=== PATIENT | female | born 1945 | race Two or more races ===

== ENCOUNTER 2017-08-12 10:36 | Outpatient (CLI) | payer OTHER | END 2017-08-12 17:00 | disposition home or self-care (01) | LOC: RAD 10:36 | DX: M15.8 Other polyosteoarthritis (principal) ==

== ENCOUNTER 2017-08-13 10:38 | Outpatient (CLI) | payer OTHER | END 2017-08-13 11:00 | disposition home or self-care (01) | LOC: NUCLEAR 10:38 | DX: M15.8 Other polyosteoarthritis (principal); M06.4 Inflammatory polyarthropathy; M46.1 Sacroiliitis, not elsewhere classified | CPT/HCPCS: 78315; A9503 ==

== ENCOUNTER 2017-10-13 06:31 | Outpatient (CLI) | payer OTHER | END 2017-10-13 17:00 | disposition home or self-care (01) | LOC: TOM 06:31 | DX: S73.111A Iliofemoral ligament sprain of right hip, initial encounter (principal) ==

== ENCOUNTER 2018-01-14 14:29 | Outpatient (CLI) | payer OTHER | END 2018-01-14 14:40 | disposition home or self-care (01) | LOC: SONOGRAMA 14:29 | DX: M25.511 Pain in right shoulder (principal) ==

== ENCOUNTER 2018-01-20 13:33 | Outpatient (CLI) | payer OTHER | END 2018-01-20 16:13 | disposition home or self-care (01) | LOC: RAD 13:33 | DX: M75.81 Other shoulder lesions, right shoulder (principal); M15.8 Other polyosteoarthritis ==

== ENCOUNTER 2018-02-13 10:33 | Emergency (ER) | payer OTHER ==
[~2018-02-13] VITALS: Ht 157.5 cm; Wt 79.4 kg
[2018-02-13] MEDS ORDERED: SYNTHROID88 MCG (11:10)
[2018-02-13] MEDS ORDERED: HYZAAR 100-12.1 EACH (11:11)
== END 2018-02-13 13:13 | disposition home or self-care (01) ==
LOC: ER 10:33
DX: S92.515A Nondisplaced fracture of proximal phalanx of left lesser toe(s), initial encounter for closed fracture (principal); W01.198A Fall on same level from slipping, tripping and stumbling with subsequent striking against other object, initial encounter; Y93.89 Activity, other specified; Y92.89 Other specified places as the place of occurrence of the external cause; Y99.8 Other external cause status

== ENCOUNTER 2018-03-18 13:53 | Outpatient (CLI) | payer OTHER ==
[~2018-03-18 13:53] MED LIST: HYZAAR 100-12.1 EACH; SYNTHROID88 MCG
== END 2018-03-18 17:00 | disposition home or self-care (01) ==
LOC: RAD 13:53
DX: M79.675 Pain in left toe(s) (principal)

== ENCOUNTER 2018-06-04 09:10 | Outpatient (CLI) | payer OTHER | END 2018-06-04 09:14 | disposition home or self-care (01) | LOC: RAD 09:10 | DX: E89.0 Postprocedural hypothyroidism (principal); E04.0 Nontoxic diffuse goiter; M79.671 Pain in right foot; M79.672 Pain in left foot; M25.571 Pain in right ankle and joints of right foot; M25.572 Pain in left ankle and joints of left foot ==

== ENCOUNTER 2018-11-01 07:18 | Outpatient (CLI) | payer OTHER | END 2018-11-01 15:20 | disposition home or self-care (01) | LOC: TOM 07:18 | DX: K64.0 First degree hemorrhoids (principal) | CPT/HCPCS: 74177; Q9965 ==

== ENCOUNTER → 2018-12-08 | Outpatient (CLI) | payer OTHER | END | disposition home or self-care (01) | LOC: RAD 10:39 | DX: J01.80 Other acute sinusitis (principal) ==

== ENCOUNTER → 2019-05-09 | Outpatient (CLI) | payer OTHER | END | disposition home or self-care (01) | LOC: NUCLEAR 07:44 | DX: I25.9 Chronic ischemic heart disease, unspecified (principal) | CPT/HCPCS: 78452; 93017; A9500; J0153 ==

== ENCOUNTER → 2020-02-21 | Outpatient (CLI) | payer OTHER | END | disposition home or self-care (01) | LOC: SONOGRAMA 06:58 | PROVIDERS: ATTEND Specialist/Technologist, Other Nephrology | DX: R10.84 Generalized abdominal pain (principal); N18.3 Chronic kidney disease, stage 3 (moderate); R31.29 Other microscopic hematuria ==

== ENCOUNTER → 2020-06-05 | Outpatient (CLI) | payer OTHER ==
[~2020-06-05] MED LIST changes: +BISOPROLOL FUMAR5 MG PO; +CELEXA10 MG PO; +PROTONIX40 M1 PO; +SYNTHROID112 MCG PO
== END | disposition home or self-care (01) ==
LOC: EDBD 13:40 → TOM 13:40 → MRI 15:15
PROVIDERS: ATTEND Family Medicine
DX: M43.8X7 Other specified deforming dorsopathies, lumbosacral region (principal); R10.84 Generalized abdominal pain

== ENCOUNTER 2020-06-06 07:03 | Emergency (ER) | payer OTHER ==
[~2020-06-06] VITALS: Ht 157.5 cm; Wt 81.6 kg
[~2020-06-06 07:03] MED LIST changes: -BISOPROLOL FUMAR5 MG PO; -CELEXA10 MG PO; -PROTONIX40 M1 PO; -SYNTHROID112 MCG PO
[2020-06-06] MEDS ORDERED: BISOPROLOL FUMAR5 MG PO (07:13)
[2020-06-06] MEDS ORDERED: PROTONIX40 M1 PO (07:14)
[2020-06-06] MEDS ORDERED: CELEXA10 MG PO (07:14)
[2020-06-06] MEDS ORDERED: SYNTHROID112 MCG PO (07:15)
== END 2020-06-06 11:57 | disposition home or self-care (01) ==
LOC: ER 07:03 → EDBD 07:38 → ER 11:57
DX: M54.5 Low back pain (principal); R10.32 Left lower quadrant pain

== ENCOUNTER → 2020-06-17 | Outpatient (CLI) | payer OTHER ==
[~2020-06-17] MED LIST changes: +BISOPROLOL FUMAR5 MG PO; +CELEXA10 MG PO; +PROTONIX40 M1 PO; +SYNTHROID112 MCG PO
== END | disposition home or self-care (01) ==
LOC: MRI 06:17
PROVIDERS: ATTEND Family Medicine
DX: M51.37 Other intervertebral disc degeneration, lumbosacral region (principal); M47.26 Other spondylosis with radiculopathy, lumbar region
CPT/HCPCS: 72148

== ENCOUNTER → 2020-06-25 | Outpatient (CLI) | payer OTHER | END | disposition home or self-care (01) | LOC: RAD 13:37 | PROVIDERS: ATTEND Physical Medicine & Rehabilitation | DX: M16.12 Unilateral primary osteoarthritis, left hip (principal) ==

== ENCOUNTER 2021-01-21 07:58 | Outpatient (CLI) | payer OTHER | END 2021-01-21 07:59 | disposition home or self-care (01) | LOC: NUCLEAR 07:58 | PROVIDERS: ATTEND Internal Medicine | DX: I25.9 Chronic ischemic heart disease, unspecified (principal); I50.1 Left ventricular failure, unspecified | CPT/HCPCS: 78452; 93017; A9500; J0153 ==

== ENCOUNTER → 2021-01-30 06:29 | Outpatient (CLI) | payer OTHER | END | disposition home or self-care (01) | LOC: MRI 06:29 | PROVIDERS: ATTEND Internal Medicine | DX: D49.6 Neoplasm of unspecified behavior of brain (principal); M50.20 Other cervical disc displacement, unspecified cervical region; E11.65 Type 2 diabetes mellitus with hyperglycemia; I11.0 Hypertensive heart disease with heart failure; E89.0 Postprocedural hypothyroidism; N18.2 Chronic kidney disease, stage 2 (mild); K76.1 Chronic passive congestion of liver; M50.30 Other cervical disc degeneration, unspecified cervical region | CPT/HCPCS: 70553; 72141; 76700; A9575 ==

== ENCOUNTER 2021-07-17 09:29 | Outpatient (CLI) | payer OTHER | END 2021-07-17 09:41 | disposition home or self-care (01) | LOC: MRI 09:29 | PROVIDERS: ATTEND Internal Medicine Rheumatology | DX: M70.62 Trochanteric bursitis, left hip (principal) | CPT/HCPCS: 73721 ==

== ENCOUNTER 2021-12-18 14:13 | Emergency (ER) | payer OTHER ==
[~2021-12-18] VITALS: Ht 157.5 cm; Wt 81.6 kg
[2021-12-18] MEDS ORDERED: CRESTOR10 MG PO (14:30)
== END 2021-12-18 19:39 | disposition home or self-care (01) ==
LOC: ER 14:13
DX: T07.XXXA Unspecified multiple injuries, initial encounter (principal); V49.3XXA Car occupant (driver) (passenger) injured in unspecified nontraffic accident, initial encounter; Y93.89 Activity, other specified; Y92.89 Other specified places as the place of occurrence of the external cause; Y99.9 Unspecified external cause status; E11.9 Type 2 diabetes mellitus without complications; I10 Essential (primary) hypertension

== ENCOUNTER 2022-06-03 07:47 | Outpatient (CLI) | payer OTHER ==
[~2022-06-03 07:47] MED LIST changes: +CRESTOR10 MG PO
== END 2022-06-03 08:00 | disposition home or self-care (01) ==
LOC: SONOGRAMA 07:47
PROVIDERS: ATTEND Internal Medicine Rheumatology
DX: R10.84 Generalized abdominal pain (principal)

== ENCOUNTER 2022-06-03 08:12 | Outpatient (CLI) | payer OTHER, BC | END 2022-06-03 08:16 | disposition home or self-care (01) | LOC: NUCLEAR 08:12 | PROVIDERS: ATTEND Internal Medicine Rheumatology | DX: I87.2 Venous insufficiency (chronic) (peripheral) (principal) ==

== ENCOUNTER 2022-12-08 13:54 | Outpatient (CLI) | payer OTHER, BC | END 2022-12-08 14:05 | disposition home or self-care (01) | LOC: MRI 13:54 | PROVIDERS: ATTEND Psychiatry & Neurology Neurology | DX: G44.1 Vascular headache, not elsewhere classified (principal) | CPT/HCPCS: 70551 ==

== ENCOUNTER 2023-03-05 11:44 | Outpatient (CLI) | payer OTHER, BC | END 2023-03-05 15:27 | disposition home or self-care (01) | LOC: RAD 11:44 | PROVIDERS: ATTEND Psychiatry & Neurology Neurology | DX: M71.21 Synovial cyst of popliteal space [Baker], right knee (principal) ==

== ENCOUNTER → 2023-03-15 | Outpatient (CLI) | payer OTHER | END | disposition home or self-care (01) | LOC: MRI 10:09 | DX: R10.13 Epigastric pain (principal); K86.2 Cyst of pancreas | CPT/HCPCS: 74183; Q9965; 74181 ==

== ENCOUNTER → 2023-04-01 13:35 | Outpatient (CLI) | payer OTHER | END | disposition home or self-care (01) | LOC: SONOGRAMA 13:35 | PROVIDERS: ATTEND Internal Medicine Endocrinology, Diabetes & Metabolism | DX: C73 Malignant neoplasm of thyroid gland (principal); E89.0 Postprocedural hypothyroidism; E04.9 Nontoxic goiter, unspecified ==

== ENCOUNTER → 2023-05-04 | Outpatient (CLI) | payer OTHER | END | disposition home or self-care (01) | LOC: TOM 10:37 | PROVIDERS: ATTEND Otolaryngology | DX: C07 Malignant neoplasm of parotid gland (principal) | CPT/HCPCS: 70492; Q9965 ==

== ENCOUNTER 2023-06-04 13:42 | Outpatient (CLI) | payer OTHER | END 2023-06-04 14:10 | disposition home or self-care (01) | LOC: SONOGRAMA 13:42 | PROVIDERS: ATTEND Internal Medicine Endocrinology, Diabetes & Metabolism | DX: M04.1 Periodic fever syndromes (principal); M25.462 Effusion, left knee; M25.461 Effusion, right knee ==

== ENCOUNTER 2024-01-11 14:39 | Outpatient (CLI) | payer OTHER | END 2024-01-11 15:00 | disposition home or self-care (01) | LOC: RAD 14:39 | PROVIDERS: ATTEND Internal Medicine Rheumatology | DX: M15.8 Other polyosteoarthritis (principal) ==

== ENCOUNTER → 2024-01-11 14:56 | Outpatient (CLI) | payer OTHER | END | disposition home or self-care (01) | LOC: NUCLEAR 14:56 | PROVIDERS: ATTEND Internal Medicine Rheumatology | DX: M81.0 Age-related osteoporosis without current pathological fracture (principal) ==

== ENCOUNTER → 2024-09-19 | Outpatient (CLI) | payer OTHER | END | disposition home or self-care (01) | LOC: TOM 07:22 | DX: C07 Malignant neoplasm of parotid gland (principal) | CPT/HCPCS: 70491; Q9965 ==